=== PATIENT | male | born 1995 | race African-American/Black ===

== ENCOUNTER 2018-05-18 02:51 | Emergency (ER) | payer OTHER ==
[~2018-05-18] VITALS: Ht 170.2 cm; Wt 90.7 kg
[~2018-05-18 02:51] MED LIST: AMOXICILLIN 50500 MG PO; FLAGYL500 MG PO; IBUPROFEN 600600 M1 PO; NOHOMEMEDICATIONS; NORCO 5-325 TA1 EACH PO; PENICILLIN V P500 MG PO; PROAIR HFA8.5 GM IH; XANAX 0.25 MG0.25 MG PO
[2018-05-18 02:58] VITALS: BP 139/79
[2018-05-18] MEDS ORDERED: NAPROSYN500 MG PO (03:21)
[2018-05-18] MEDS ORDERED: FLEXERIL PO (03:21)
== END 2018-05-18 03:35 | disposition home or self-care (01) ==
LOC: ER 02:51
DX: S29.012A Strain of muscle and tendon of back wall of thorax, initial encounter (principal); M25.572 Pain in left ankle and joints of left foot; M25.562 Pain in left knee; M79.605 Pain in left leg; M25.511 Pain in right shoulder; J45.909 Unspecified asthma, uncomplicated; X58.XXXA Exposure to other specified factors, initial encounter; Y92.89 Other specified places as the place of occurrence of the external cause; Y93.89 Activity, other specified; Y99.8 Other external cause status

== ENCOUNTER 2019-03-16 18:08 | Emergency (ER) | payer OTHER ==
[~2019-03-16] VITALS: Ht 170.2 cm; Wt 90.7 kg
[~2019-03-16 18:08] MED LIST changes: +FLEXERIL PO; +NAPROSYN500 MG PO
[2019-03-16] MEDS ORDERED: ULTRAM 50MG TAB50 MG PO (19:59)
[2019-03-16 20:01] VITALS: BP 124/76
== END 2019-03-16 19:45 | disposition home or self-care (01) ==
LOC: ER 18:08
DX: S62.663A Nondisplaced fracture of distal phalanx of left middle finger, initial encounter for closed fracture (principal); M25.561 Pain in right knee; M25.511 Pain in right shoulder; R51 Headache; J45.909 Unspecified asthma, uncomplicated; F17.210 Nicotine dependence, cigarettes, uncomplicated; W22.03XA Walked into furniture, initial encounter; Y93.89 Activity, other specified; Y92.89 Other specified places as the place of occurrence of the external cause; Y99.8 Other external cause status

== ENCOUNTER 2019-06-06 18:08 | Emergency (ER) | payer OTHER ==
[~2019-06-06] VITALS: Ht 170.2 cm; Wt 93.0 kg
[~2019-06-06 18:08] MED LIST changes: +ULTRAM 50MG TAB50 MG PO
[2019-06-06 18:13] VITALS: BP 123/62
[2019-06-06] MEDS ORDERED: NAPROSYN500 MG PO (18:37)
[2019-06-06] MEDS ORDERED: NORFLEX100 MG PO (18:37)
== END 2019-06-06 18:57 | disposition home or self-care (01) ==
LOC: ER 18:08
DX: S29.012A Strain of muscle and tendon of back wall of thorax, initial encounter (principal); J45.909 Unspecified asthma, uncomplicated; F17.210 Nicotine dependence, cigarettes, uncomplicated; V49.9XXA Car occupant (driver) (passenger) injured in unspecified traffic accident, initial encounter; Y93.89 Activity, other specified; Y92.89 Other specified places as the place of occurrence of the external cause; Y99.8 Other external cause status

== ENCOUNTER 2019-06-15 19:40 | Emergency (ER) | payer OTHER ==
[~2019-06-15] VITALS: Ht 167.6 cm; Wt 90.7 kg
[~2019-06-15 19:40] MED LIST changes: +NORFLEX100 MG PO
[2019-06-15 19:41] VITALS: BP 119/79
[2019-06-15] MEDS ORDERED: MOBIC15 MG PO (21:04)
== END 2019-06-15 21:12 | disposition home or self-care (01) ==
LOC: ER 19:40
DX: S29.012A Strain of muscle and tendon of back wall of thorax, initial encounter (principal); F17.210 Nicotine dependence, cigarettes, uncomplicated; J45.909 Unspecified asthma, uncomplicated; V49.60XA Unspecified car occupant injured in collision with unspecified motor vehicles in traffic accident, initial encounter; Y93.89 Activity, other specified; Y92.89 Other specified places as the place of occurrence of the external cause; Y99.8 Other external cause status

== ENCOUNTER 2020-04-12 16:46 | Emergency (ER) | payer OTHER ==
[~2020-04-12] VITALS: Ht 170.2 cm; Wt 90.7 kg
[~2020-04-12 16:46] MED LIST changes: +MOBIC15 MG PO
[2020-04-12] MEDS ORDERED: IBUPROFEN 600600 M1 PO (18:34)
[2020-04-12] MEDS ORDERED: NORFLEX100 MG PO (18:34)
[2020-04-12 18:39] VITALS: BP 112/58
== END 2020-04-12 18:35 | disposition home or self-care (01) ==
LOC: ER 16:46
DX: S39.012A Strain of muscle, fascia and tendon of lower back, initial encounter (principal); S23.3XXA Sprain of ligaments of thoracic spine, initial encounter; J45.909 Unspecified asthma, uncomplicated; F17.210 Nicotine dependence, cigarettes, uncomplicated; Z79.899 Other long term (current) drug therapy; V49.59XA Passenger injured in collision with other motor vehicles in traffic accident, initial encounter; Y93.89 Activity, other specified; Y92.488 Other paved roadways as the place of occurrence of the external cause; Y99.8 Other external cause status

== ENCOUNTER 2020-04-14 01:43 | Emergency (ER) | payer OTHER ==
[~2020-04-14] VITALS: Ht 182.9 cm; Wt 122.5 kg
== END 2020-04-14 01:56 ==
LOC: ER 01:43 → EDBD 01:43 → ER 01:43
DX: S27.898A Other injury of other specified intrathoracic organs, initial encounter (principal); A64 Unspecified sexually transmitted disease; X95.9XXA Assault by unspecified firearm discharge, initial encounter; Y93.89 Activity, other specified; Y92.810 Car as the place of occurrence of the external cause; Y99.8 Other external cause status